=== PATIENT | female | born 1965 | race Caucasian/White ===

== ENCOUNTER 2021-02-16 06:12 | Day surgery (SDC) | payer OTHER ==
[~2021-02-16] VITALS: Ht 167.6 cm; Wt 49.4 kg
[2021-02-16 06:48] VITALS: BP 131/80
[2021-02-16] MEDS ORDERED: SODIUM CHLORIDE 0.9% 1,000 ML IV SCH (07:00)
[2021-02-16 07:27] LABS: INTERNATIONAL NORMALIZED RATIO 1.01 (0.93-1.1); PROTHROMBIN TIME 10.8 Seconds (9.6-11.5)
[2021-02-16] MEDS ORDERED: NALOXONE 1 MG/ML, 2ML ONE (07:55)
[2021-02-16] MEDS ORDERED: FLUMAZENIL 0.1 MG/1 ML, 5ML ONE (07:55)
[2021-02-16] MEDS ORDERED: FENTANYL PF 100 MCG/2ML ONE (07:55)
[2021-02-16] MEDS ORDERED: MIDAZOLAM 1 MG/ML, 5ML ONE ×2 (07:55)
[2021-02-16] MEDS ORDERED: LIDOCAINE 1%, 10ML ONE (08:06)
== END 2021-02-16 10:40 | disposition home or self-care (01) ==
LOC: OUT 06:12
PROVIDERS: ATTEND Internal Medicine Nephrology
DX: I12.9 Hypertensive chronic kidney disease with stage 1 through stage 4 chronic kidney disease, or unspecified chronic kidney disease (principal); N18.32 Chronic kidney disease, stage 3b; N13.2 Hydronephrosis with renal and ureteral calculous obstruction; N17.9 Acute kidney failure, unspecified; N25.81 Secondary hyperparathyroidism of renal origin; E78.5 Hyperlipidemia, unspecified; K91.2 Postsurgical malabsorption, not elsewhere classified; Z79.899 Other long term (current) drug therapy; Z88.5 Allergy status to narcotic agent; Z91.040 Latex allergy status; Z98.890 Other specified postprocedural states
CPT/HCPCS: 36415; 50200; 77012; 85610; 88300; 99156; 99157; J2250; J3010; J7030; J2310